=== PATIENT | female | born 1940 | race Two or more races ===

== ENCOUNTER 2017-02-09 23:33 | Emergency (ER) | payer MEDICARE, MEDICAID ==
[~2017-02-09] VITALS: Ht 154.9 cm; Wt 57.2 kg
--- NOTE | 2017-02-09 23:56 | NUR ---
BIB DAUGHTER C/O SUDDEN ONSET OF LEFT SIDED BACK PAIN X 3 DAYS. DENIES TRAUMA. HX BACK PAIN X 1 YR. PT AOX3 MALAGASY SPEAKING, DAUGHTER AT BEDSIDE. RR EVEN AND UNLABORED. NO SOB NOTED. NAD NOTED. NO NVD AT THIS TIME. PT GOWNED AND PLACED ON MONITOR WAITING FOR MD [place].
--- NOTE | 2017-02-09 23:59 | NUR ---
DR. HUSAIN AT BEDSIDE FOR EVAL.
--- NOTE | 2017-02-10 00:03 | NUR ---
RECEIVED REPORT FROM WILLIAN SMALLWOOD FOR TRUDY
[2017-02-10] MEDS ORDERED: TRAMADOL HCL 50 MG TABLET ONE (00:18)
--- NOTE | 2017-02-10 00:22 | NUR ---
Patient discharged to home in stable condition. Written and verbal after care instructions given. Patient verbalizes understanding of instruction. Patient is ambulatory with steady gait, accompanied by family going home. No further complaints.
[2017-02-10 00:24] VITALS: BP 142/87
[2017-02-10] MEDS ORDERED: TRAMADOL HCL 50 MG TABLET PO ONE (00:30)
== END 2017-02-10 00:24 | disposition home or self-care (01) ==
LOC: ER 23:38
DX: M54.9 Dorsalgia, unspecified (principal); E11.9 Type 2 diabetes mellitus without complications; I10 Essential (primary) hypertension; I25.10 Atherosclerotic heart disease of native coronary artery without angina pectoris; Z95.0 Presence of cardiac pacemaker; Z88.8 Allergy status to other drugs, medicaments and biological substances; Z90.49 Acquired absence of other specified parts of digestive tract
CPT/HCPCS: 99283; A4606; Z7610

== ENCOUNTER 2017-10-30 21:07 | Emergency (ER) | payer MEDICARE, MEDICAID ==
[~2017-10-30] VITALS: Ht 152.4 cm; Wt 57.2 kg
--- NOTE | 2017-10-30 21:50 | NUR ---
PT A/O X4. C/C LEFT LOWER BACK P. NEG ACUTE DISTRESS. VSS. PT STABLE CONDITION. SAFETY MEASURES IN PLACE.
[2017-10-30 22:45] LABS: APPEARANCE,URINE CLEAR (CLEAR); BILIRUBIN,URINE NEGATIVE (NEGATIVE); BLOOD, URINE NEGATIVE Ery/uL (NEGATIVE); COLOR,URINE YELLOW (YELLOW); KETONES,URINE NEGATIVE (NEGATIVE); LEUKOCYTE ESTERASE ,URINE NEGATIVE (NEGATIVE); NITRITE, URINE NEGATIVE (NEGATIVE); PROTEIN,URINE NEGATIVE (NEGATIVE); UGLUCOSE NEGATIVE (NEGATIVE); UROBILINOGEN,URINE 0.2 EU/dL (0.2)
[2017-10-30] MEDS ORDERED: HYDROMORPHONE INJ 2 MG/ML DISP.SYRIN ONE (22:59)
[2017-10-30] MEDS ORDERED: CARISOPRODOL 350 MG TABLET ONE (22:59)
[2017-10-30] MEDS ORDERED: HYDROMORPHONE INJ 0.5 MG/0.5 ML SYRINGE IM ONE (23:00)
[2017-10-30] MEDS ORDERED: CARISOPRODOL 350 MG TABLET PO ONE (23:00)
[2017-10-31 00:05] VITALS: BP 118/76
== END 2017-10-31 00:06 | disposition home or self-care (01) ==
LOC: ER 21:08
DX: M54.42 Lumbago with sciatica, left side (principal); M51.36 Other intervertebral disc degeneration, lumbar region; I10 Essential (primary) hypertension; E11.9 Type 2 diabetes mellitus without complications; Z95.0 Presence of cardiac pacemaker; Z88.8 Allergy status to other drugs, medicaments and biological substances
CPT/HCPCS: 72131; 81001; 96372; 99285; A4606; J1170; 81000-TC; Z7610

== ENCOUNTER 2018-08-10 16:09 | Inpatient (IN) | payer MEDICARE, MEDICAID ==
[~2018-08-10] VITALS: Ht 152.4 cm; Wt 55.3 kg
--- NOTE | 2018-08-10 16:59 | NUR ---
BIB DAUGHTER FOR CONFUSION, LAST WELL KNOWN YESTERDAY, ALSO C/O HEADACHE. TO ER BED 4, HOOKED TO MONITOR, DR FRAIRE AT BEDSIDE FOR EVAL.
[2018-08-10] MEDS ORDERED: CT SWABBABLE VALVE TRANS SET 1 EA INFUS.SET MC ONE (17:02)
[2018-08-10] MEDS ORDERED: IV NS 0.9% 250 ML IV ONE (17:02)
[2018-08-10] MEDS ORDERED: IOHEXOL-350 100 ML VIAL IV ONE (17:02)
--- NOTE | 2018-08-10 17:02 | NUR ---
Called Code Stroke
--- NOTE | 2018-08-10 17:03 | NUR ---
STARTED PERIPHERAL IV LINE LFA 20G.
[2018-08-10] MEDS ORDERED: ASPI-1152 PO (17:05)
[2018-08-10] MEDS ORDERED: SIMV10TA6 PO (17:05)
[2018-08-10] MEDS ORDERED: ALEN70TA6 PO (17:05)
[2018-08-10] MEDS ORDERED: LISI-607 PO (17:05)
[2018-08-10] MEDS ORDERED: METF-440 PO (17:05)
--- NOTE | 2018-08-10 17:05 | NUR ---
WHEELED OUT VIA RNEY FOR CT SCAN
[2018-08-10 17:08] LABS: BASOPHILS # (AUTO) 0.1 /CMM (0.0-0.2); BASOPHILS % (AUTO) 0.5 % (0.0-2.0); EOSINOPHILS % (AUTO) 0.5 % (0.0-6.0); HEMATOCRIT 42 % (33-45); HEMOGLOBIN 14.1 g/dL (11.5-14.8); LYMPHOCYTES # (AUTO) 0.9 /CMM (0.8-4.8); LYMPHOCYTES % (AUTO) 8.3 % (20.0-44.0); MEAN CORPUSCULAR HGB CONC 34 g/dl (31.0-36.0); MEAN CORPUSCULAR VOLUME 89 fL (82-100); MONOCYTES # (AUTO) 0.3 /CMM (0.1-1.30); MONOCYTES % (AUTO) 2.8 % (2.0-12.0); NEUTROPHILS # (AUTO) 9.7 /CMM (1.8-8.9); NEUTROPHILS % (AUTO) 87.9 % (43.0-81.0); PLATELET COUNT (AUTO) 165 /CMM (150-450)
[2018-08-10 17:17] LABS: CALCIUM, SERUM 9.2 mg/dL (8.5-10.1); CARBON DIOXIDE 21 mmol/L (21-32); CHLORIDE 104 mmol/L (98-107); CREATININE 0.8 mg/dL (0.6-1.3); GLUCOSE 194 mg/dL (74-106); POTASSIUM 3.6 mmol/L (3.5-5.1); SODIUM SERUM 138 mmol/L (136-145); UREA NITROGEN, BLOOD 10 mg/dL (7-18)
--- NOTE | 2018-08-10 17:20 | NUR ---
BACK FROM CT SCAN AND CXR
[2018-08-10 17:33] LABS: CHOLESTEROL 191 mg/dL (<200); HDL CHOLESTEROL 47 mg/dL (40-60); LDL 131 mg/dL (0-99); TRIGLYCERIDES 122 mg/dL (30-150)
--- NOTE | 2018-08-10 18:06 | NUR ---
PT IN BED AWAKE, W DAUGHTER AT BEDSIDE. HOOKED TO MONITOR, STILL CONFUSED PER DAUGHTER. WILL CONTINUE TO MONITOR. KEPT WARM AND COMFORTABLE.
[2018-08-10 18:35] LABS: APPEARANCE,URINE Clear (CLEAR); BILIRUBIN,URINE Negative (NEGATIVE); BLOOD, URINE Negative Ery/uL (NEGATIVE); COLOR,URINE Yellow (YELLOW); KETONES,URINE 15 (NEGATIVE); LEUKOCYTE ESTERASE ,URINE Negative (NEGATIVE); NITRITE, URINE Negative (NEGATIVE); PROTEIN,URINE Negative (NEGATIVE); UGLUCOSE Negative (NEGATIVE); UROBILINOGEN,URINE 0.2 EU/dL (0.2)
[2018-08-10 18:43] LABS: BACTERIA,URINE None seen /HPF (None Seen); RBC,URINE 0-2 /HPF (0-2); SQUAMOUS EPITHELIAL CELL,UR Few /HPF (None Seen); WBC,URINE 0-2 /HPF (0-3)
--- NOTE | 2018-08-10 19:23 | NUR ---
BED 259
--- NOTE | 2018-08-10 19:38 | NUR ---
REPORT GIVEN TO FLACO SMALLWOOD OF ICU
--- NOTE | 2018-08-10 19:40 | NUR ---
REPORT GIVEN TO CHRISTEN SMALLWOOD FOR TRUDY
[2018-08-10] MEDS ORDERED: DEXTROSE 50%-WATER 50 ML DISP.SYRIN IV PRN (20:30)
--- NOTE | 2018-08-10 20:36 | NUR ---
TELE BED 106
--- NOTE | 2018-08-10 21:16 | NUR ---
REPORT GIVEN TO CL KUMAR FOR TRUDY
[2018-08-10 21:22] VITALS: BP 145/75
--- NOTE | 2018-08-10 21:22 | NUR ---
CLOTHING PATTERNMAKER NOTE RECEIVED PATIENT AOX1-2, MICRONESIAN SPEAKING, SPEECH CLEAR, ABLE TO IDENTIFY SELF AND THAT WAS IN A HOSPITAL, CONTINUES TO HAVE CONFUSION, ASKING "WHAT'S WRONG WITH ME?" PATIENT IS ON ROOM AIR, NO S/SX OF RESPIRATORY OR CARDIAC DISTRESS, ON TELE V PACING, PACEMAKER LCW, PT DENIES ANY PAIN, RFA #20G AND LFA #20G BOTH FLUSHING WELL, PATENT, SITES ARE CLEAN AND DRY, ABLE TO FOLLOW COMMAND, EVEN GRASP, FREE RANGE OF MOTION OF LIMBS, ABLE TO SWALLOW, SAFETY MAINTAINED AT ALL TIMES, BED IN LOW LOCKED POSITION, CALL LIGHT WITHIN REACH, WILL CONTINUE TO MONITOR FOR ANY CHANGES.
[2018-08-10] MEDS ORDERED: BLOOD SUGAR DIAGNOSTIC 1 EACH STRIP IN SCH (22:00)
[2018-08-10] MEDS: ASPIRIN 325 MG TABLET PO SCH (22:24)
[2018-08-10] MEDS: ATORVASTATIN 40 MG TABLET PO SCH (22:24)
[2018-08-10] MEDS: INSULIN REGULAR, HUMAN 100 UNIT/ML 3 ML VIAL SQ PRN (22:33)
[2018-08-10] MEDS: BLOOD SUGAR DIAGNOSTIC 1 EACH STRIP IN SCH (22:40)
[2018-08-11] VITALS: BP 137/79
[2018-08-11] MEDS ORDERED: BLOOD SUGAR DIAGNOSTIC 1 EACH STRIP IN SCH
[2018-08-11 04:00] VITALS: BP 124/61
[2018-08-11 06:16] LABS: CALCIUM, SERUM 9.2 mg/dL (8.5-10.1); CARBON DIOXIDE 25 mmol/L (21-32); CHLORIDE 105 mmol/L (98-107); CREATININE 0.6 mg/dL (0.6-1.3); GLUCOSE 132 mg/dL (74-106); POTASSIUM 3.5 mmol/L (3.5-5.1); SODIUM SERUM 142 mmol/L (136-145); UREA NITROGEN, BLOOD 10 mg/dL (7-18)
[2018-08-11 06:29] LABS: BASOPHILS % (AUTO) 0.4 % (0.0-2.0); EOSINOPHILS % (AUTO) 0.7 % (0.0-6.0); HEMATOCRIT 42 % (33-45); HEMOGLOBIN 14.3 g/dL (11.5-14.8); LYMPHOCYTES # (AUTO) 1.4 /CMM (0.8-4.8); LYMPHOCYTES % (AUTO) 15.6 % (20.0-44.0); MEAN CORPUSCULAR HGB CONC 34 g/dl (31.0-36.0); MEAN CORPUSCULAR VOLUME 87 fL (82-100); MONOCYTES # (AUTO) 0.7 /CMM (0.1-1.30); MONOCYTES % (AUTO) 7.4 % (2.0-12.0); NEUTROPHILS % (AUTO) 75.9 % (43.0-81.0); PLATELET COUNT (AUTO) 163 /CMM (150-450); RED BLOOD CELL COUNT(AUTO) 4.78 MIL/uL (4.0-5.2); WHITE BLOOD COUNT (AUTO) 9.3 K/uL (4.3-11.0)
[2018-08-11 08:00] VITALS: BP_SYST 111; BP_SYST 140; BP_DIAS 61; BP_DIAS 75
[2018-08-11] MEDS: BLOOD SUGAR DIAGNOSTIC 1 EACH STRIP IN SCH ×4 (08:34→21:48)
[2018-08-11] MEDS: ASPIRIN 325 MG TABLET PO SCH (08:36)
--- NOTE | 2018-08-11 09:08 | NUR ---
ROOM SERVER OPENING NOTE RECEIVED PATIENT SLEEPING IN BED WITH FAMILY AT BEDSIDE. AOX1-2, SWISS SPEAKING, PATIENT IS ON ROOM AIR, NO S/S OF RESPIRATORY OR CARDIAC DISTRESS, ON TELE V PACE @85. PACEMAKER RFA #20G AND LFA #20G BOTH FLUSHING WELL, PATENT, SITES ARE CLEAN AND DRY. SAFETY MEASURES IN PLACE. BED IN LOW LOCKED POSITION, CALL LIGHT WITHIN REACH, WILL CONTINUE TO MONITOR FOR ANY CHANGES.
--- NOTE | 2018-08-11 10:27 | NUR ---
SECURITY SOLUTIONS ENGINEER NOTE PATIENT C/O JONES 12/16. [place] NOTIFIED. CT SCAN ORDERED. PATIENT TAKEN FOR CT SCAN AT 1028.
[2018-08-11 12:00] VITALS: BP 133/75
[2018-08-11] MEDS ORDERED: ACETAMINOPHEN 325 MG TABLET PO PRN (12:00)
[2018-08-11] MEDS: INSULIN REGULAR, HUMAN 100 UNIT/ML 3 ML VIAL SQ PRN ×3 (12:23→21:48)
--- NOTE | 2018-08-11 12:27 | NUR ---
CARETAKER GROUNDS NOTE PATIENT GIVEN INSULIN LATE D/T PHARMACY NOT PROVIDING NEW INSULIN CARTRIDGE AND/OR ICU NOT SENDING PATIENT INSULIN W/ PATIENT. BS 162 AT TIME CHECKED. NO ADVERSE SYMPTOMS NOTED. INSULIN ADMINISTERED AT 1225.
[2018-08-11 16:00] VITALS: BP 124/66
[2018-08-11 20:00] VITALS: BP 123/71
--- NOTE | 2018-08-11 20:28 | NUR ---
AIRCRAFT MOTOR MECHANIC NOTE MD BEDSIDE TODAY W/ PATIENT. STROKE ASSESSMENT COMPLETED. MD DISCUSSED THE NEGATIVE CAT SCAN RESULT FROM AM CT PROCEDURE PERFORMED. PATIENT EDUCATED AND TOLD OF UPCOMING INTERVENTIONS. PATIENT RESTED COMFORTABLY FOR REST OF THE DAY. PATIENT DAUGHTER AT BEDSIDE.
--- NOTE | 2018-08-11 20:31 | NUR ---
CORRECTIONAL SECURITY OFFICER CLOSING NOTE PATIENT SLEEPING IN BED WITH FAMILY AT BEDSIDE. AOX1-2, FRISIAN SPEAKING, PATIENT IS ON ROOM AIR, NO S/S OF RESPIRATORY OR CARDIAC DISTRESS, ON TELE V PACE @85. PACEMAKER RFA #20G AND LFA #20G BOTH FLUSHING WELL, PATENT, SITES ARE CLEAN AND DRY. PATIENT CT SCAN RESULT NEGATIVE. MD BEDSIDE TODAY. PATIENT RESTED COMFORTABLY ALL DAY. 50% FOOD EATEN AT ALL MEALS. SAFETY MEASURES IN PLACE. BED IN LOW LOCKED POSITION, CALL LIGHT WITHIN REACH, WILL CONTINUE TO MONITOR FOR ANY CHANGES.
[2018-08-11] MEDS: ATORVASTATIN 40 MG TABLET PO SCH (21:39)
[2018-08-12] VITALS: BP 112/70
[2018-08-12 04:00] VITALS: BP 114/67
[2018-08-12 06:33] LABS: BASOPHILS # (AUTO) 0.1 /CMM (0.0-0.2); BASOPHILS % (AUTO) 0.9 % (0.0-2.0); EOSINOPHILS % (AUTO) 3.5 % (0.0-6.0); HEMATOCRIT 41 % (33-45); HEMOGLOBIN 14.1 g/dL (11.5-14.8); LYMPHOCYTES # (AUTO) 1.7 /CMM (0.8-4.8); LYMPHOCYTES % (AUTO) 30.7 % (20.0-44.0); MEAN CORPUSCULAR HGB CONC 35 g/dl (31.0-36.0); MEAN CORPUSCULAR VOLUME 88 fL (82-100); MONOCYTES # (AUTO) 0.5 /CMM (0.1-1.30); MONOCYTES % (AUTO) 8.1 % (2.0-12.0); NEUTROPHILS # (AUTO) 3.2 /CMM (1.8-8.9); NEUTROPHILS % (AUTO) 56.8 % (43.0-81.0); PLATELET COUNT (AUTO) 148 /CMM (150-450); RED BLOOD CELL COUNT(AUTO) 4.64 MIL/uL (4.0-5.2); WHITE BLOOD COUNT (AUTO) 5.6 K/uL (4.3-11.0)
[2018-08-12 06:46] LABS: CARBON DIOXIDE 24 mmol/L (21-32); CHLORIDE 105 mmol/L (98-107); CREATININE 0.8 mg/dL (0.6-1.3); GLUCOSE 129 mg/dL (74-106); MAGNESIUM 2.2 mg/dL (1.8-2.4); PHOSPHORUS 3.5 mg/dL (2.5-4.9); POTASSIUM 3.3 mmol/L (3.5-5.1); SODIUM SERUM 141 mmol/L (136-145); UREA NITROGEN, BLOOD 13 mg/dL (7-18)
--- NOTE | 2018-08-12 07:25 | NUR ---
RN NOTES PATIENT IN BED, AWAKE ALERT AND ORIENTED, VERBALLY ABLE TO COMMUNICATE NEEDS. KOREAN SPEAKING. AMBULATORY. NO COMPLAINT OF PAIN OR DISCOMFORT. ABLE TO SWALLOW. NO EPISODE OF COUGHING OR SIGNS OR SYMPTOMS OF ASPIRATION. VITAL SIGNS WNL. KEPT CLEAN AND DRY. ENDORSED TO NEXT SHIFT FOR CONTINUITY OF CARE
[2018-08-12] MEDS: BLOOD SUGAR DIAGNOSTIC 1 EACH STRIP IN SCH ×3 (07:56→18:04)
[2018-08-12] MEDS: INSULIN REGULAR, HUMAN 100 UNIT/ML 3 ML VIAL SQ PRN (07:57)
[2018-08-12 08:00] VITALS: BP 123/62
[2018-08-12] MEDS ORDERED: CLOPIDOGREL BISULFATE 75 MG TABLET PO SCH (09:00)
[2018-08-12] MEDS ORDERED: POTASSIUM CHLORIDE 20 MEQ TAB.PRT.SR PO SCH ×2 (10:00→13:30)
[2018-08-12 16:00] VITALS: BP 115/61
--- NOTE | 2018-08-12 19:39 | NUR ---
UTILITY TELLER CLOSING NOTE PATIENT AWAKE IN BED WITH FAMILY AT BEDSIDE. AOX1-2, FIJIAN SPEAKING, PATIENT IS ON ROOM AIR, NO S/S OF RESPIRATORY OR CARDIAC DISTRESS, ON TELE V PACE @85. PACEMAKER RFA #20G AND LFA #20G BOTH FLUSHING WELL, PATENT, SITES ARE CLEAN AND DRY. PATIENT RESTED COMFORTABLY ALL DAY. 75% FOOD EATEN AT ALL MEALS. PATIENT TO BE D/C TONIGHT TO [facility]. SAFETY MEASURES IN PLACE. BED IN LOW LOCKED POSITION, CALL LIGHT WITHIN REACH, CARE ENDORSED TO ELECTRO MECHANICAL SOLAR TECHNICIAN RN.
--- NOTE | 2018-08-12 20:46 | NUR ---
RN NOTES RECEIVED PATIENT AWAKE IN BED WITH FAMILY AT BEDSIDE, NO DISTRESS NOTED, BREATHING EVEN AND UNLABORED. ROOM AIR TOLERATING WELL. ALERT AND ORIENTED, VERBALLY ABLE TO COMMUNICATE NEEDS. GHANAIAN SPEAKING. NO COMPLAINT OF PAIN OR ANY DISCOMFORT. GAVE REPORT TO YONATHAN SMALLWOOD [facility]. SKIN INTACT. REMOVE IV LINES IN LEFT AND RIGHT FOREARM. PICKED UP BY AMBULANCE AT 2030 IN STABLE CONDITION. VITAL SIGNS WNL. SIGNED INVENTORY SHEET.
[2018-08-14 09:14] LABS: *WEST NILE VIRUS, IgG, SERUM Negative (Negative)
[2018-08-14 11:09] LABS: *WEST NILE VIRUS, IgM, SERUM Negative (Negative)
== END 2018-08-12 20:43 | DRG 64 ==
LOC: ER 16:14 → ICU 19:05 → TELE1 21:33 → MEDSG1 08-12 08:30
PROVIDERS: ADMIT Student in an Organized Health Care Education/Training Program; ATTEND Student in an Organized Health Care Education/Training Program
DX: I63.9 Cerebral infarction, unspecified (principal); G93.41 Metabolic encephalopathy; I69.351 Hemiplegia and hemiparesis following cerebral infarction affecting right dominant side; E11.9 Type 2 diabetes mellitus without complications; E78.5 Hyperlipidemia, unspecified; I10 Essential (primary) hypertension; R29.810 Facial weakness; Z79.82 Long term (current) use of aspirin; Z79.84 Long term (current) use of oral hypoglycemic drugs; Z79.899 Other long term (current) drug therapy; Z95.0 Presence of cardiac pacemaker; I25.10 Atherosclerotic heart disease of native coronary artery without angina pectoris
CPT/HCPCS: 36415; 70450-TC; 70496-TC; 70498-TC; 71045-TC; 80048-TC; 80061-TC; 80305; 81000-TC; 82962-TC; 83735-TC; 83880; 84100-TC; 84443-TC; 84484-TC; 85025-TC; 85730-TC; 86788; 86789; 87040-TC; 87081-TC; 92521; 92611-TC; 93307-TC; 93880-TC; 97530-TC; G0378; J1815; J7050; Q9967

== ENCOUNTER 2018-12-19 14:31 | Emergency (ER) | payer MEDICARE, MEDICAID ==
[~2018-12-19] VITALS: Ht 154.9 cm; Wt 54.4 kg
[~2018-12-19 14:31] MED LIST: ALEN70TA6 PO; ASPI-1152 PO; LISI-607 PO; METF-440 PO; SIMV10TA6 PO
--- NOTE | 2018-12-19 14:40 | NUR ---
PT BIB DAUGHTER FROM HOME, C/O ABD PAIN RADIATING TO RIGHT LOWER BACK x 3 DAYS, PT IS AAOX3 MOZAMBICAN SPEAKING ONLY, HOOKED TO MONITOR, KEPT RESTED AND COMFORTABLE, WILL CONTINUE TO MONITOR.
--- NOTE | 2018-12-19 14:50 | NUR ---
IV LINE ESTABLISHED, BLOOD DRAWNED AND SENT TO LAB.
--- NOTE | 2018-12-19 14:55 | NUR ---
SEEN AND EXAMINED BY .
[2018-12-19] MEDS ORDERED: IV NS 0.9% 1,000 ML BAG IV ONE (15:00)
[2018-12-19] MEDS ORDERED: ONDANSETRON HCL/PF 4 MG/2 ML VIAL ONE (15:03)
[2018-12-19] MEDS ORDERED: MORPHINE SULFATE INJ 4 MG/ML DISP.SYRIN ONE (15:04)
[2018-12-19 15:10] LABS: BASOPHILS # (AUTO) 0.1 /CMM (0.0-0.2); BASOPHILS % (AUTO) 0.8 % (0.0-2.0); EOSINOPHILS % (AUTO) 2.9 % (0.0-6.0); HEMATOCRIT 45 % (33-45); HEMOGLOBIN 14.9 g/dL (11.5-14.8); LYMPHOCYTES % (AUTO) 12.4 % (20.0-44.0); MEAN CORPUSCULAR HGB CONC 34 g/dl (31.0-36.0); MEAN CORPUSCULAR VOLUME 88 fL (82-100); MONOCYTES # (AUTO) 0.4 /CMM (0.1-1.30); MONOCYTES % (AUTO) 4.6 % (2.0-12.0); NEUTROPHILS # (AUTO) 6.6 /CMM (1.8-8.9); NEUTROPHILS % (AUTO) 79.3 % (43.0-81.0); PLATELET COUNT (AUTO) 158 /CMM (150-450); RED BLOOD CELL COUNT(AUTO) 5.04 MIL/uL (4.0-5.2); WHITE BLOOD COUNT (AUTO) 8.3 K/uL (4.3-11.0)
--- NOTE | 2018-12-19 15:28 | NUR ---
PT IS BACK FROM THE CT SCAN.
[2018-12-19] MEDS ORDERED: ONDANSETRON HCL/PF 4 MG/2 ML VIAL IVP ONE (15:30)
[2018-12-19] MEDS ORDERED: MORPHINE SULFATE INJ 2 MG/ML DISP.SYRIN IV ONE (15:30)
[2018-12-19 15:31] LABS: CALCIUM, SERUM 9.1 mg/dL (8.5-10.1); CARBON DIOXIDE 27 mmol/L (21-32); CHLORIDE 103 mmol/L (98-107); CREATININE 0.9 mg/dL (0.6-1.3); GLUCOSE 152 mg/dL (74-106); POTASSIUM 3.7 mmol/L (3.5-5.1); SODIUM SERUM 140 mmol/L (136-145); UREA NITROGEN, BLOOD 10 mg/dL (7-18)
[2018-12-19 15:37] LABS: ALANINE AMINOTRANSFERASE 28 U/L (12-78); ALKALINE PHOSPHATASE 87 U/L (46-116); ASPARTATE AMINOTRANSFERASE 23 U/L (15-37); BILIRUBIN,DIRECT 0.1 mg/dL (0.0-0.2); BILIRUBIN,TOTAL 0.4 mg/dL (0.2-1.0); LIPASE 435 U/L (73-393); TOTAL PROTEIN, SERUM 7.4 g/dL (6.4-8.2)
[2018-12-19 16:36] LABS: APPEARANCE,URINE Clear (CLEAR); BILIRUBIN,URINE Negative (NEGATIVE); BLOOD, URINE Negative Ery/uL (NEGATIVE); COLOR,URINE Yellow (YELLOW); KETONES,URINE Negative (NEGATIVE); LEUKOCYTE ESTERASE ,URINE Negative (NEGATIVE); NITRITE, URINE Negative (NEGATIVE); PROTEIN,URINE Negative (NEGATIVE); UGLUCOSE Negative (NEGATIVE); UROBILINOGEN,URINE 0.2 EU/dL (0.2)
[2018-12-19] MEDS ORDERED: KETOROLAC TROMETHAMINE 15 MG/ML VIAL ONE (16:59)
--- NOTE | 2018-12-19 17:00 | NUR ---
TORADOL 15MG IV GIVEN VERBAL ORDERED BY .
--- NOTE | 2018-12-19 17:36 | NUR ---
IV removed. Catheter intact and site benign. Pressure and 4x4 applied to site. No bleeding noted. Patient discharged to home in stable condition. Written and verbal after care instructions given. Patient verbalizes understanding of instruction.
[2018-12-19 17:38] VITALS: BP 144/84
== END 2018-12-19 17:41 | disposition home or self-care (01) ==
LOC: ER 14:31
DX: R10.31 Right lower quadrant pain (principal); I10 Essential (primary) hypertension; E11.9 Type 2 diabetes mellitus without complications; Z95.0 Presence of cardiac pacemaker; Z98.890 Other specified postprocedural states; Z79.82 Long term (current) use of aspirin; Z88.8 Allergy status to other drugs, medicaments and biological substances
CPT/HCPCS: 36415; 74176; 80048; 80076; 81001; 83690; 85025; 96374; 96375; 99284; J1885; J2270; J2405; J7030; 81000-TC

== ENCOUNTER 2019-07-15 19:34 | Emergency (ER) | payer MEDICARE, OTHER ==
[~2019-07-15] VITALS: Ht 154.9 cm; Wt 59.0 kg
[~2019-07-15 19:34] MED LIST changes: -SIMV10TA6 PO; +SIMV10TA98 PO
[2019-07-15] MEDS ORDERED: MORPHINE SULFATE INJ 2 MG/ML DISP.SYRIN ONE ×2 (19:57→20:28)
[2019-07-15] MEDS ORDERED: ONDANSETRON HCL/PF 4 MG/2 ML VIAL ONE (19:57)
[2019-07-15] MEDS ORDERED: MORPHINE SULFATE INJ 2 MG/ML DISP.SYRIN IV ONE ×2 (20:00→20:30)
[2019-07-15] MEDS ORDERED: ONDANSETRON HCL/PF 4 MG/2 ML VIAL IVP ONE (20:00)
[2019-07-15] MEDS ORDERED: IV NS 0.9% 1,000 ML BAG IV ONE (20:00)
[2019-07-15 20:12] LABS: APPEARANCE,URINE Clear (CLEAR); BASOPHILS % (AUTO) 0.6 % (0.0-2.0); BILIRUBIN,URINE Negative (NEGATIVE); BLOOD, URINE Negative Ery/uL (NEGATIVE); COLOR,URINE Yellow (YELLOW); EOSINOPHILS % (AUTO) 6.8 % (0.0-6.0); HEMATOCRIT 45 % (33-45); HEMOGLOBIN 14.6 g/dL (11.5-14.8); KETONES,URINE Negative (NEGATIVE); LEUKOCYTE ESTERASE ,URINE Negative (NEGATIVE); LYMPHOCYTES # (AUTO) 1.3 /CMM (0.8-4.8); LYMPHOCYTES % (AUTO) 21.4 % (20.0-44.0); MEAN CORPUSCULAR HGB CONC 33 g/dl (31.0-36.0); MEAN CORPUSCULAR VOLUME 92 fL (82-100); MONOCYTES # (AUTO) 0.4 /CMM (0.1-1.30); MONOCYTES % (AUTO) 5.9 % (2.0-12.0); NEUTROPHILS # (AUTO) 3.9 /CMM (1.8-8.9); NEUTROPHILS % (AUTO) 65.3 % (43.0-81.0); NITRITE, URINE Negative (NEGATIVE); PLATELET COUNT (AUTO) 162 /CMM (150-450); PROTEIN,URINE Negative (NEGATIVE); RED BLOOD CELL COUNT(AUTO) 4.87 MIL/uL (4.0-5.2); UGLUCOSE 100 MG/DL mg/dL (NEGATIVE); UROBILINOGEN,URINE 0.2 EU/dL (0.2)
--- NOTE | 2019-07-15 20:13 | NUR ---
PATIENT CAME TO ER BED 9 C/O RIGHT LOWER ABDOMINAL PAIN FOR 3x DAYS. PT STATES THAT S HE ALSO HAS HEADACHE. PAIN UPON PALPATION OF ABDOMEN. AAOX4. NO SOB. BREATHING EVENLY AND UNLABORED ON ROOM AIR. CONNECTED TO MONITOR.
--- NOTE | 2019-07-15 20:14 | NUR ---
BLOOD DRAWN AND SENT TO LAB
--- NOTE | 2019-07-15 20:35 | NUR ---
PATIENT IS WHEELED TO CT
[2019-07-15 20:55] LABS: BACTERIA,URINE Few /HPF (None Seen); RBC,URINE 0-2 /HPF (0-2); SQUAMOUS EPITHELIAL CELL,UR Few /HPF (None Seen); WBC,URINE 0-2 /HPF (0-3)
[2019-07-15 21:02] LABS: ALBUMIN 3.8 g/dL (3.4-5.0); BILIRUBIN,DIRECT 0.1 mg/dL (0.0-0.2); BILIRUBIN,TOTAL 0.3 mg/dL (0.2-1.0); POTASSIUM 3.7 mmol/L (3.5-5.1); TOTAL PROTEIN, SERUM 7.2 g/dL (6.4-8.2)
[2019-07-15 22:10] VITALS: BP 123/77
== END 2019-07-15 22:10 | disposition home or self-care (01) ==
LOC: ER 19:38
DX: K52.9 Noninfective gastroenteritis and colitis, unspecified (principal); I10 Essential (primary) hypertension; E78.5 Hyperlipidemia, unspecified; E11.9 Type 2 diabetes mellitus without complications; M19.90 Unspecified osteoarthritis, unspecified site; Z95.0 Presence of cardiac pacemaker; Z98.890 Other specified postprocedural states; Z88.8 Allergy status to other drugs, medicaments and biological substances; Z79.899 Other long term (current) drug therapy; Z79.82 Long term (current) use of aspirin; Z79.84 Long term (current) use of oral hypoglycemic drugs
CPT/HCPCS: 36415; 74176; 80048; 80076; 81001; 83690; 84484; 85025; 96361; 96374; 96375; 99284; J2270; J2405; J7030; 81000-TC

== ENCOUNTER 2023-05-23 19:43 | Inpatient (IN) | payer OTHER ==
[~2023-05-23] VITALS: Ht 152.4 cm; Wt 56.7 kg
[~2023-05-23 19:43] MED LIST changes: -ALEN70TA6 PO; +ALEN70TA80 PO; -ASPI-1152 PO; +ASPI-1420 PO; -LISI-607 PO; +LISI-768 PO
[2023-05-23] MEDS ORDERED: oxyCODONE/APAP (5/325 MG) 1 UDTAB TABLET PO ONE (22:30)
[2023-05-23] MEDS ORDERED: oxyCODONE/APAP (5/325 MG) 1 UDTAB TABLET ONE (22:35)
[2023-05-23 22:54] LABS: BASOPHILS # (AUTO) 0.1 K/uL (0.0-0.2); BASOPHILS % (AUTO) 0.8 % (0.0-2.0); EOSINOPHILS # (AUTO) 0.4 K/uL (0.0-0.7); EOSINOPHILS % (AUTO) 4.1 % (0.0-6.0); HEMATOCRIT 38 % (33-45); HEMOGLOBIN 12.7 g/dL (11.5-14.8); LYMPHOCYTES # (AUTO) 1.4 K/uL (0.8-4.8); LYMPHOCYTES % (AUTO) 15.6 % (20.0-44.0); MEAN CORPUSCULAR HEMOGLOBIN 30 PG (26.0-33.0); MEAN CORPUSCULAR HGB CONC 33 g/dl (31.0-36.0); MEAN CORPUSCULAR VOLUME 89 fL (82-100); MONOCYTES # (AUTO) 0.6 K/uL (0.1-1.30); MONOCYTES % (AUTO) 7.1 % (2.0-12.0); NEUTROPHILS # (AUTO) 6.3 K/uL (1.8-8.9); NEUTROPHILS % (AUTO) 72.4 % (43.0-81.0); PLATELET COUNT (AUTO) 158 K/uL (150-450); RED BLOOD CELL COUNT(AUTO) 4.28 MIL/uL (4.0-5.2); WHITE BLOOD COUNT (AUTO) 8.7 K/uL (4.3-11.0)
[2023-05-23 23:06] LABS: CALCIUM, SERUM 9.3 mg/dL (8.5-10.1); CARBON DIOXIDE 24 mmol/L (21-32); CHLORIDE 105 mmol/L (98-107); CREATININE 0.9 mg/dL (0.6-1.3); GLUCOSE 196 mg/dL (74-106); SODIUM SERUM 137 mmol/L (136-145); UREA NITROGEN, BLOOD 14 mg/dL (7-18)
[2023-05-24] MEDS ORDERED: CLOP75TA15 PO (01:04)
[2023-05-24] MEDS ORDERED: ATOR80TA PO (01:04)
[2023-05-24] MEDS ORDERED: FAMO40TA7 PO (01:04)
[2023-05-24] MEDS ORDERED: IRBE300T19 PO (01:04)
[2023-05-24] MEDS ORDERED: PANT40TA2 PO (01:04)
[2023-05-24] MEDS ORDERED: ACETAMINOPHEN 325 MG TABLET PO PRN (01:30)
[2023-05-24] MEDS ORDERED: DEXTROSE 50%-WATER 50 ML DISP.SYRIN IV PRN (01:30)
[2023-05-24] MEDS: METFORMIN 500 MG TABLET PO SCH ×2 (08:00→17:07)
[2023-05-24 09:00] LABS: BASOPHILS % (AUTO) 0.6 % (0.0-2.0); EOSINOPHILS # (AUTO) 0.4 K/uL (0.0-0.7); EOSINOPHILS % (AUTO) 6.2 % (0.0-6.0); HEMATOCRIT 38 % (33-45); HEMOGLOBIN 12.9 g/dL (11.5-14.8); LYMPHOCYTES # (AUTO) 1.3 K/uL (0.8-4.8); LYMPHOCYTES % (AUTO) 21.6 % (20.0-44.0); MEAN CORPUSCULAR HEMOGLOBIN 30 PG (26.0-33.0); MEAN CORPUSCULAR HGB CONC 34 g/dl (31.0-36.0); MEAN CORPUSCULAR VOLUME 89 fL (82-100); MONOCYTES # (AUTO) 0.5 K/uL (0.1-1.30); MONOCYTES % (AUTO) 8.1 % (2.0-12.0); NEUTROPHILS # (AUTO) 3.9 K/uL (1.8-8.9); NEUTROPHILS % (AUTO) 63.5 % (43.0-81.0); PLATELET COUNT (AUTO) 152 K/uL (150-450); RED CELL DISTRIBUTION WIDTH 14.2 % (11.5-15.0); WHITE BLOOD COUNT (AUTO) 6.1 K/uL (4.3-11.0)
[2023-05-24] MEDS ORDERED: CLOPIDOGREL BISULFATE 75 MG TABLET PO SCH (09:00)
[2023-05-24] MEDS ORDERED: FAMOTIDINE (20 MG) 20 MG TABLET PO SCH (09:00)
[2023-05-24] MEDS ORDERED: oxyCODONE/APAP (5/325 MG) 1 UDTAB TABLET PO PRN (09:00)
[2023-05-24] MEDS ORDERED: PANTOPRAZOLE 40 MG TABLET.DR PO ONE (09:09)
[2023-05-24] MEDS ORDERED: METFORMIN 500 MG TABLET ONE (09:09)
[2023-05-24] MEDS ORDERED: ASPIRIN EC 81 MG TABLET.DR PO ONE (09:11)
[2023-05-24] MEDS ORDERED: CLOPIDOGREL BISULFATE 75 MG TABLET ONE (09:12)
[2023-05-24] MEDS ORDERED: FAMOTIDINE (20 MG) 20 MG TABLET ONE (09:12)
[2023-05-24 09:14] LABS: CALCIUM, SERUM 9.5 mg/dL (8.5-10.1); CREATININE 0.8 mg/dL (0.6-1.3); POTASSIUM 4.4 mmol/L (3.5-5.1)
[2023-05-24 09:20] LABS: THYROID STIMULATING HORMONE 4.571 uIU/mL (0.358-3.74)
[2023-05-24] MEDS ORDERED: LOSARTAN POTASSIUM 50 MG TABLET ONE (09:21)
[2023-05-24] MEDS: BLOOD SUGAR DIAGNOSTIC 1 EACH STRIP IN SCH ×4 (09:24→21:33)
[2023-05-24] MEDS: ASPIRIN EC 81 MG TABLET.DR PO SCH (09:31)
[2023-05-24] MEDS: PANTOPRAZOLE 40 MG TABLET.DR PO SCH (09:31)
[2023-05-24] MEDS: LOSARTAN POTASSIUM 50 MG TABLET PO SCH (09:32)
[2023-05-24] MEDS ORDERED: FAMOTIDINE 40 MG TABLET PO SCH (10:00)
[2023-05-24] MEDS ORDERED: Medication Not On Formulary EA (Atorvastatin Calcium (Lipitor) 80 MG) PO SCH (10:00)
[2023-05-24 10:30] VITALS: BP 138/71; TEMP 98.4; O2SAT 96
[2023-05-24] MEDS ORDERED: IV NS 0.9% 250 ML IV ONE (11:19)
[2023-05-24] MEDS ORDERED: NITROGLYCERIN 0.4 MG/TAB BOTTLE ONE (11:19)
[2023-05-24] MEDS ORDERED: IOHEXOL-350 100 ML VIAL IV ONE (11:19)
[2023-05-24] MEDS ORDERED: CT SWABBABLE VALVE TRANS SET 1 EA INFUS.SET MC ONE (11:19)
[2023-05-24] MEDS ORDERED: METOPROLOL TARTRATE INJ 5 MG/5 ML AMPUL ONE (11:19)
[2023-05-24 12:00] VITALS: BP 138/71; TEMP 98.4; O2SAT 96
[2023-05-24] MEDS ORDERED: NITROGLYCERIN 0.4 MG/TAB BOTTLE SL ONE (12:00)
[2023-05-24] MEDS ORDERED: METOPROLOL TARTRATE INJ 5 MG/5 ML AMPUL IVP PRN (12:00)
[2023-05-24] MEDS: INSULIN REGULAR, HUMAN 100 UNIT/ML 3 ML VIAL SQ PRN ×3 (12:42→21:34)
[2023-05-24] MEDS: METOPROLOL TARTRATE 50 MG TABLET PO SCH ×2 (12:53→21:26)
[2023-05-24 16:00] VITALS: BP 107/58; TEMP 98; O2SAT 100
[2023-05-24 16:23] LABS: APPEARANCE,URINE CLEAR (CLEAR); BILIRUBIN,URINE NEGATIVE (NEGATIVE); BLOOD, URINE NEGATIVE Ery/uL (NEGATIVE); COLOR,URINE YELLOW (YELLOW); KETONES,URINE NEGATIVE (NEGATIVE); LEUKOCYTE ESTERASE ,URINE NEGATIVE (NEGATIVE); NITRITE, URINE NEGATIVE (NEGATIVE); PROTEIN,URINE NEGATIVE (NEGATIVE); UGLUCOSE NEGATIVE (NEGATIVE); UROBILINOGEN,URINE 0.2 EU/dL (0.2)
[2023-05-24] MEDS: IV NS 0.9% 1,000 ML IV PRN (19:44)
[2023-05-24 20:00] VITALS: BP 131/53; TEMP 98.8; O2SAT 100
[2023-05-24] MEDS: ATORVASTATIN 40 MG TABLET PO SCH (21:26)
[2023-05-25] VITALS (16 sets, daily range): BP systolic 127–190; BP diastolic 54–165; TEMP 97.8–98.2; O2SAT 93–99
[2023-05-25] MEDS: BLOOD SUGAR DIAGNOSTIC 1 EACH STRIP IN SCH ×4 (06:36→21:03)
[2023-05-25] MEDS: INSULIN REGULAR, HUMAN 100 UNIT/ML 3 ML VIAL SQ PRN ×3 (06:36→21:10)
[2023-05-25] MEDS: PANTOPRAZOLE 40 MG TABLET.DR PO SCH (07:49)
[2023-05-25] MEDS: METFORMIN 500 MG TABLET PO SCH ×2 (08:00→18:00)
[2023-05-25] MEDS: IV NS 0.9% 1,000 ML IV PRN ×2 (08:41→18:10)
[2023-05-25] MEDS: METOPROLOL TARTRATE 50 MG TABLET PO SCH ×2 (08:41→21:05)
[2023-05-25] MEDS: LOSARTAN POTASSIUM 50 MG TABLET PO SCH (08:42)
[2023-05-25] MEDS: ASPIRIN EC 81 MG TABLET.DR PO SCH (08:42)
[2023-05-25] MEDS: FAMOTIDINE (20 MG) 20 MG TABLET PO SCH (08:42)
[2023-05-25] MEDS ORDERED: CLOPIDOGREL BISULFATE 75 MG TABLET PO SCH (09:00)
[2023-05-25 09:22] LABS: INR 1.1 (0.91-1.10); PROTHROMBIN TIME 11.6 SECS (9.2-11.1)
[2023-05-25 09:25] LABS: CALCIUM, SERUM 9.2 mg/dL (8.5-10.1); CREATININE 0.7 mg/dL (0.6-1.3)
[2023-05-25 09:37] LABS: BASOPHILS % (AUTO) 0.7 % (0.0-2.0); EOSINOPHILS # (AUTO) 0.3 K/uL (0.0-0.7); HEMATOCRIT 38 % (33-45); HEMOGLOBIN 12.7 g/dL (11.5-14.8); LYMPHOCYTES # (AUTO) 1.2 K/uL (0.8-4.8); LYMPHOCYTES % (AUTO) 18.8 % (20.0-44.0); MEAN CORPUSCULAR HEMOGLOBIN 30 PG (26.0-33.0); MEAN CORPUSCULAR HGB CONC 34 g/dl (31.0-36.0); MEAN CORPUSCULAR VOLUME 89 fL (82-100); MONOCYTES # (AUTO) 0.4 K/uL (0.1-1.30); MONOCYTES % (AUTO) 6.7 % (2.0-12.0); NEUTROPHILS # (AUTO) 4.5 K/uL (1.8-8.9); NEUTROPHILS % (AUTO) 68.8 % (43.0-81.0); PLATELET COUNT (AUTO) 145 K/uL (150-450); RED BLOOD CELL COUNT(AUTO) 4.27 MIL/uL (4.0-5.2); RED CELL DISTRIBUTION WIDTH 13.5 % (11.5-15.0); WHITE BLOOD COUNT (AUTO) 6.6 K/uL (4.3-11.0)
[2023-05-25] MEDS ORDERED: IV NS 0.9% 1,000 ML ONE (11:26)
[2023-05-25] MEDS ORDERED: IV SET PRIMARY PUMP SET 1 EA INFUS.SET MC ONE (11:26)
[2023-05-25] MEDS ORDERED: LIDOCAINE HCL/MPF 1% 30 ML VIAL IJ ONE (11:27)
[2023-05-25] MEDS ORDERED: NITROGLYCERIN IN 5 % DEXTROSE 250 ML IV ONE (11:27)
[2023-05-25] MEDS ORDERED: IODIXANOL 150 ML IV ONE (11:27)
[2023-05-25] MEDS ORDERED: MIDAZOLAM HCL 2 MG/2ML VIAL ONE (12:40)
[2023-05-25] MEDS ORDERED: FENTANYL PF 100MCG/2ML AMPUL ONE (12:40)
[2023-05-25] MEDS ORDERED: HEPARIN SODIUM, PORCINE 1,000 UNIT/ML VIAL ONE (12:52)
[2023-05-25] MEDS ORDERED: IODIXANOL 320MG/ML 50 ML IV ONE (12:53)
[2023-05-25] MEDS ORDERED: TICAGRELOR 90 MG TABLET PO ONE (13:07)
[2023-05-25] MEDS ORDERED: TICAGRELOR 90 MG TABLET PO SCH (17:00)
[2023-05-25] MEDS: ATORVASTATIN 40 MG TABLET PO SCH (21:05)
[2023-05-25] MEDS ORDERED: CLOPIDOGREL BISULFATE 300 MG TABLET PO ONE (22:00)
[2023-05-26] VITALS (19 sets, daily range): BP systolic 117–164; BP diastolic 51–119; TEMP 97.7–98.8; O2SAT 93–98
[2023-05-26 05:03] LABS: BASOPHILS % (AUTO) 0.3 % (0.0-2.0); EOSINOPHILS # (AUTO) 0.2 K/uL (0.0-0.7); EOSINOPHILS % (AUTO) 1.8 % (0.0-6.0); HEMATOCRIT 37 % (33-45); HEMOGLOBIN 12.7 g/dL (11.5-14.8); LYMPHOCYTES # (AUTO) 0.9 K/uL (0.8-4.8); LYMPHOCYTES % (AUTO) 9.9 % (20.0-44.0); MEAN CORPUSCULAR HEMOGLOBIN 30 PG (26.0-33.0); MEAN CORPUSCULAR HGB CONC 34 g/dl (31.0-36.0); MEAN CORPUSCULAR VOLUME 87 fL (82-100); MONOCYTES # (AUTO) 0.6 K/uL (0.1-1.30); NEUTROPHILS # (AUTO) 7.4 K/uL (1.8-8.9); PLATELET COUNT (AUTO) 160 K/uL (150-450); RED BLOOD CELL COUNT(AUTO) 4.25 MIL/uL (4.0-5.2); RED CELL DISTRIBUTION WIDTH 13.7 % (11.5-15.0); WHITE BLOOD COUNT (AUTO) 9.1 K/uL (4.3-11.0)
[2023-05-26 05:12] LABS: CALCIUM, SERUM 9.1 mg/dL (8.5-10.1); CREATININE 0.7 mg/dL (0.6-1.3); POTASSIUM 3.6 mmol/L (3.5-5.1)
[2023-05-26] MEDS: METFORMIN 500 MG TABLET PO SCH (07:53)
[2023-05-26] MEDS: ASPIRIN EC 81 MG TABLET.DR PO SCH (08:12)
[2023-05-26] MEDS: FAMOTIDINE (20 MG) 20 MG TABLET PO SCH (08:12)
[2023-05-26] MEDS: PANTOPRAZOLE 40 MG TABLET.DR PO SCH (08:12)
[2023-05-26] MEDS: METOPROLOL TARTRATE 50 MG TABLET PO SCH (08:13)
[2023-05-26] MEDS: LOSARTAN POTASSIUM 50 MG TABLET PO SCH (08:14)
[2023-05-26] MEDS: BLOOD SUGAR DIAGNOSTIC 1 EACH STRIP IN SCH ×2 (08:14→11:52)
[2023-05-26] MEDS: INSULIN REGULAR, HUMAN 100 UNIT/ML 3 ML VIAL SQ PRN ×2 (08:16→12:33)
[2023-05-26] MEDS ORDERED: ASPI-1420 PO (08:58)
[2023-05-26] MEDS ORDERED: CLOPIDOGREL BISULFATE 75 MG TABLET PO SCH (09:00)
[2023-05-26] MEDS ORDERED: VALSARTAN 80 MG TABLET PO SCH (09:00)
== END 2023-05-26 16:22 | disposition home or self-care (01) | DRG 322 ==
LOC: ER 19:51 → TRANSITION 05-24 01:21 → TELE1 05-24 09:33 → ICU 05-25 13:31
PROVIDERS: ADMIT Internal Medicine; ATTEND Internal Medicine
PROC: 4A023N7 Measurement of Cardiac Sampling and Pressure, Left Heart, Percutaneous Approach (ICD-10-PCS; principal; 2023-05-25)
PROC: 027034Z Dilation of Coronary Artery, One Artery with Drug-eluting Intraluminal Device, Percutaneous Approach (ICD-10-PCS; 2023-05-25)
PROC: B211YZZ Fluoroscopy of Multiple Coronary Arteries using Other Contrast (ICD-10-PCS; 2023-05-25)
DX: I21.4 Non-ST elevation (NSTEMI) myocardial infarction (principal); I25.10 Atherosclerotic heart disease of native coronary artery without angina pectoris; B34.9 Viral infection, unspecified; I10 Essential (primary) hypertension; E11.9 Type 2 diabetes mellitus without complications; E78.5 Hyperlipidemia, unspecified; D64.9 Anemia, unspecified; Z95.0 Presence of cardiac pacemaker; Z20.822 Contact with and (suspected) exposure to COVID-19; M54.89 Other dorsalgia; Z79.84 Long term (current) use of oral hypoglycemic drugs
CPT/HCPCS: 36415; 71250-TC; 75574; 80048-TC; 80061-TC; 82962-TC; 84443-TC; 84484-TC; 85025-TC; 85347; 85610-TC; 93307-TC; A4223; C1725; C1769; C1887; C9600; G0378; G0500; J1644; J1815; J2250; J3010; J3490; J7030; J7050; Q9967

== ENCOUNTER 2024-03-13 15:19 | Emergency (ER) | payer MEDICARE, OTHER ==
[~2024-03-13] VITALS: Ht 144.8 cm; Wt 51.7 kg
[~2024-03-13 15:19] MED LIST changes: +ATOR80TA PO; +CLOP75TA15 PO; +FAMO40TA7 PO; +IRBE300T19 PO; -LISI-768 PO; +PANT40TA2 PO; -SIMV10TA98 PO
[2024-03-13] MEDS ORDERED: CYCL15CA23 PO (16:35)
[2024-03-13 16:40] VITALS: BP 129/72; TEMP 98.4; O2SAT 99
== END 2024-03-13 16:41 | disposition home or self-care (01) ==
LOC: ER 15:36
DX: M79.672 Pain in left foot (principal); R60.0 Localized edema; E11.9 Type 2 diabetes mellitus without complications; I10 Essential (primary) hypertension; M19.90 Unspecified osteoarthritis, unspecified site; Z79.02 Long term (current) use of antithrombotics/antiplatelets; Z79.82 Long term (current) use of aspirin; Z79.84 Long term (current) use of oral hypoglycemic drugs; Z79.899 Other long term (current) drug therapy; Z95.0 Presence of cardiac pacemaker
CPT/HCPCS: 73630-TC